=== PATIENT | male | born 1995 | race Asian ===

== ENCOUNTER 2019-01-30 15:27 | Inpatient (IN) | payer MEDICAID, OTHER ==
[~2019-01-30] VITALS: Ht 175.3 cm; Wt 60.4 kg
[~2019-01-30 15:27] MED LIST: DIVA-76 PO; RISP2 PO
[2019-01-30 16:48] LABS: BASOPHILS % (AUTO) 0.8 % (0.0-2.0); EOSINOPHILS % (AUTO) 3.2 % (1.0-6.0); HEMATOCRIT 33.1 % (41-53); LYMPHOCYTES % (AUTO) 12.6 % (22.0-44.0); MEAN CORPUSCULAR HGB CONC 33.1 G/dL (31.0-37.0); MEAN CORPUSCULAR VOLUME 66 fL (80-100); MONOCYTES # (AUTO) 0.5 K/uL (0.1-1.0); MONOCYTES % (AUTO) 6.2 % (2.0-9.0); NEUTROPHILS # (AUTO) 6.4 K/uL (1.8-7.7); NEUTROPHILS % (AUTO) 77.2 % (40.0-70.0); PLATELET COUNT (AUTO) 223 K/uL (150-450); RED BLOOD CELL COUNT(AUTO) 4.99 MIL/uL (4.50-5.90); RED CELL DISTRIBUTION WIDTH 16.4 % (11.5-14.5)
[2019-01-30 16:59] LABS: ANION GAP 6 mmol/L (8-16); CALCIUM, TOTAL 8.2 mg/dL (8.8-10.5); CARBON DIOXIDE 30 mmol/L (22-29); CHLORIDE 109 mmol/L (98-107); CREATININE 1.18 mg/dL (0.60-1.30); GLOMERULAR FILTR. RATE CALC > 60 mL/min (>60); GLUCOSE,RANDOM 55 mg/dL (70-110); POTASSIUM 4.2 mmol/L (3.5-5.1); SODIUM SERUM 145 mmol/L (136-145); UREA NITROGEN, BLOOD 23 mg/dL (7-18)
[2019-01-30 17:05] LABS: ALANINE AMINOTRANSFERASE 27 U/L (12-78); ALBUMIN 3.5 g/dL (3.4-5.0); BILIRUBIN,TOTAL 0.5 mg/dL (0.1-1.0)
[2019-01-30 17:43] LABS: ALKALINE PHOSPHATASE 76 U/L (46-116); ASPARTATE AMINOTRANSFERASE 42 U/L (15-37); TOTAL PROTEIN, SERUM 6.4 g/dL (6.4-8.2)
[2019-01-30 19:35] LABS: AMPHET/METH SCREEN,URINE POSITIVE (NEGATIVE); BARBITURATE SCREEN, URINE NEGATIVE (NEGATIVE); BENZODIAZEPINES SCREEN,URINE NEGATIVE (NEGATIVE); CANNABINOID SCREEN,URINE POSITIVE (NEGATIVE); COCAINE SCREEN,URINE NEGATIVE (NEGATIVE); METHADONE SCREEN, URINE NEGATIVE (NEGATIVE); OPIATE SCREEN,URINE NEGATIVE (NEGATIVE)
[2019-01-30 19:36] LABS: PHENCYCLIDINE SCREEN,URINE NEGATIVE (NEGATIVE)
[2019-01-30] MEDS ORDERED: BACITRACIN 0.9 GM PACKET OINTMENT TP ONE (20:15)
[2019-01-30] MEDS ORDERED: LIDOCAINE/PF 1% 5 ML VIAL INJ ONE (20:15)
[2019-01-30 20:33] LABS: VALPROIC ACID < 3 mcg/mL (50-100)
[2019-01-30] MEDS ORDERED: RisperiDONE 1 MG TABLET PO ONE (21:30)
[2019-01-30] MEDS ORDERED: DIVALPROEX SODIUM 500 MG ER TABLET PO ONE (21:30)
[2019-01-30 21:45] VITALS: BP 134/74
[2019-01-30] MEDS ORDERED: LORazepam 2 MG TABLET PO PRN (22:00)
[2019-01-30] MEDS ORDERED: HALOPERIDOL 5 MG TABLET PO PRN (22:00)
[2019-01-30] MEDS ORDERED: ZOLPIDEM TARTRATE 10 MG TABLET PO PRN (22:00)
[2019-01-30] MEDS ORDERED: DOCUSATE SODIUM 100 MG CAPSULE PO PRN (22:30)
[2019-01-30] MEDS ORDERED: ACETAMINOPHEN 325 MG TABLET PO PRN (22:30)
[2019-01-30] MEDS ORDERED: ALBUTEROL SULFATE HFA 90 MCG/PUFF 8 GM INHALER IH PRN (22:30)
[2019-01-30] MEDS ORDERED: NICOTINE 14 MG/24 HOUR PATCH TD PRN (22:30)
[2019-01-30] MEDS ORDERED: MAG HYDROX/AL HYDROX/SIMETH ES 30 ML SUSPENSION UDCUP PO PRN (22:30)
[2019-01-30] MEDS ORDERED: CloNIDine HCL 0.1 MG TABLET PO PRN (22:30)
[2019-01-30] MEDS ORDERED: IBUPROFEN 400 MG TABLET PO PRN (22:30)
[2019-01-30] MEDS ORDERED: ONDANSETRON HCL 4 MG TABLET PO PRN (22:30)
[2019-01-30] MEDS ORDERED: PETROLATUM,WHITE 28 GM JELLY TP PRN (22:30)
[2019-01-30] MEDS ORDERED: GuaiFENesin/D-METHORPHAN [SUGAR-FREE] 200-20MG/10 ML SYRUP UDCUP PO PRN (22:30)
[2019-01-30] MEDS ORDERED: LOPERAMIDE HCL 2 MG CAPSULE PO PRN (22:30)
[2019-01-30] MEDS ORDERED: MAGNESIUM HYDROXIDE SUSPENSION 30 ML UDCUP PO PRN (22:30)
[2019-01-31 08:54] VITALS: BP 142/70
[2019-01-31 09:51] LABS: BASOPHILS % (AUTO) 1.2 % (0.0-2.0); EOSINOPHILS % (AUTO) 5.5 % (1.0-6.0); HEMATOCRIT 30.8 % (41-53); HEMOGLOBIN 10.3 g/dL (13.5-17.5); LYMPHOCYTES % (AUTO) 23.7 % (22.0-44.0); MEAN CORPUSCULAR HEMOGLOBIN 22.2 pg (26.0-34.0); MEAN CORPUSCULAR HGB CONC 33.4 G/dL (31.0-37.0); MEAN CORPUSCULAR VOLUME 66 fL (80-100); MONOCYTES # (AUTO) 0.3 K/uL (0.1-1.0); MONOCYTES % (AUTO) 5.8 % (2.0-9.0); NEUTROPHILS # (AUTO) 2.8 K/uL (1.8-7.7); NEUTROPHILS % (AUTO) 63.8 % (40.0-70.0); PLATELET COUNT (AUTO) 213 K/uL (150-450); RED BLOOD CELL COUNT(AUTO) 4.64 MIL/uL (4.50-5.90); RED CELL DISTRIBUTION WIDTH 16.5 % (11.5-14.5)
[2019-01-31 10:06] LABS: HEMOGLOBIN A1C 4.7 % (4.5-6.2)
[2019-01-31 10:15] LABS: ALANINE AMINOTRANSFERASE 16 U/L (12-78); ALBUMIN 3.2 g/dL (3.4-5.0); ALKALINE PHOSPHATASE 52 U/L (46-116); ANION GAP 1 mmol/L (8-16); ASPARTATE AMINOTRANSFERASE 15 U/L (15-37); BILIRUBIN,TOTAL 0.7 mg/dL (0.1-1.0); CARBON DIOXIDE 31 mmol/L (22-29); CHLORIDE 107 mmol/L (98-107); CHOL/HDL RATIO 2.2 (4.2-7.3); CHOLESTEROL 81 mg/dL (131-200); CREATININE 0.81 mg/dL (0.60-1.30); GLOMERULAR FILTR. RATE CALC > 60 mL/min (>60); GLUCOSE,RANDOM 89 mg/dL (70-110); HDL CHOLESTEROL 37 mg/dL (40-60); LDL CHOL (CALC.) 38 mg/dL (0-130); POTASSIUM 4.1 mmol/L (3.5-5.1); SODIUM SERUM 139 mmol/L (136-145); THYROID STIMULATING HORMONE 1.09 uIU/mL (0.36-3.74); TOTAL PROTEIN, SERUM 5.8 g/dL (6.4-8.2); TRIGLYCERIDES 30 mg/dL (15-150); UREA NITROGEN, BLOOD 15 mg/dL (7-18)
[2019-01-31 16:00] VITALS: BP 99/53
[2019-01-31] MEDS: RisperiDONE 2 MG TABLET PO SCH (20:49)
[2019-01-31 21:59] LABS: APPEARANCE,URINE CLEAR (CLEAR); BILIRUBIN,URINE NEGATIVE (NEGATIVE); GLUCOSE, URINE (UA) NEGATIVE (NEGATIVE); KETONES,URINE TRACE mg/dL (NEGATIVE); LEUKOCYTE ESTERASE ,URINE NEGATIVE (NEGATIVE); NITRATE,URINE NEGATIVE (NEGATIVE); OCCULT BLOOD,URINE NEGATIVE (NEGATIVE); PH,URINE 6.5 (5.0-8.0); PROTEIN,URINE NEGATIVE (NEGATIVE)
[2019-01-31 22:07] LABS: BACTERIA,URINE None Seen /HPF (None Seen); RBC,URINE None Seen /HPF (0-2); SQUAMOUS EPITHELIAL CELL,UR Rare /LPF (None Seen); WBC,URINE None Seen /HPF (0-5)
[2019-02-01 10:05] VITALS: BP 103/67
[2019-02-01] MEDS: BuPROPion HCL XL 150 MG ER TABLET PO SCH (13:53)
[2019-02-01] MEDS: RisperiDONE 2 MG TABLET PO SCH (21:11)
[2019-02-01 21:23] VITALS: BP 100/55
[2019-02-02] MEDS: BuPROPion HCL XL 150 MG ER TABLET PO SCH (08:48)
[2019-02-02 09:42] VITALS: BP 100/60
[2019-02-02 16:00] VITALS: BP 106/61
[2019-02-02] MEDS: RisperiDONE 2 MG TABLET PO SCH (20:25)
[2019-02-03] MEDS: BuPROPion HCL XL 150 MG ER TABLET PO SCH (08:44)
[2019-02-03 09:12] VITALS: BP 110/61
[2019-02-03] MEDS ORDERED: BUPR-93 PO (12:19)
== END 2019-02-03 15:25 | disposition home or self-care (01) | DRG 740 ==
LOC: EMS 15:28 → 3EI 22:23
PROVIDERS: ADMIT Psychiatry & Neurology Psychiatry; ATTEND Psychiatry & Neurology Psychiatry
PROC: 0XQQ0ZZ Repair Right Middle Finger, Open Approach (ICD-10-PCS; principal; 2019-01-30)
DX: F25.9 Schizoaffective disorder, unspecified (principal); E44.0 Moderate protein-calorie malnutrition; D64.9 Anemia, unspecified; S61.219A Laceration without foreign body of unspecified finger without damage to nail, initial encounter; Z87.891 Personal history of nicotine dependence; X78.0XXA Intentional self-harm by sharp glass, initial encounter; Y93.89 Activity, other specified; Y92.89 Other specified places as the place of occurrence of the external cause; Y99.8 Other external cause status
CPT/HCPCS: 83036; 84443; G0480; J2001

== ENCOUNTER 2019-10-27 13:16 | Inpatient (IN) | payer MEDICAID ==
[~2019-10-27] VITALS: Ht 170.2 cm; Wt 68.9 kg
[~2019-10-27 13:16] MED LIST changes: +BUPR-93 PO; -DIVA-76 PO; -RISP2 PO; +RISP2TAB23 PO
[2019-10-27 21:55] VITALS: BP 119/72
[2019-10-28 05:31] VITALS: BP 115/64
[2019-10-28] MEDS ORDERED: MAG HYDROX/AL HYDROX/SIMETH ES 30 ML SUSPENSION UDCUP PO PRN (08:00)
[2019-10-28] MEDS ORDERED: IBUPROFEN 600 MG TABLET PO PRN (08:00)
[2019-10-28] MEDS ORDERED: ACETAMINOPHEN 325 MG TABLET PO PRN (08:00)
[2019-10-28] MEDS ORDERED: BACITRACIN 28.4 GM OINTMENT TP PRN (08:00)
[2019-10-28] MEDS ORDERED: PETROLATUM,WHITE 28 GM JELLY TP PRN (08:00)
[2019-10-28] MEDS ORDERED: ALBUTEROL SULFATE HFA 90 MCG/PUFF 8 GM INHALER IH PRN (08:00)
[2019-10-28] MEDS ORDERED: ONDANSETRON HCL 4 MG TABLET PO PRN (08:00)
[2019-10-28] MEDS ORDERED: OMEPRAZOLE 20 MG CAPSULE PO PRN (08:00)
[2019-10-28] MEDS ORDERED: BENZOCAINE/MENTHOL LOZENGE MM PRN (08:00)
[2019-10-28] MEDS ORDERED: CloNIDine HCL 0.1 MG TABLET PO PRN (08:00)
[2019-10-28] MEDS ORDERED: MAGNESIUM HYDROXIDE SUSPENSION 30 ML UDCUP PO PRN (08:00)
[2019-10-28] MEDS ORDERED: DOCUSATE SODIUM 100 MG CAPSULE PO PRN (08:00)
[2019-10-28] MEDS ORDERED: LOPERAMIDE HCL 2 MG CAPSULE PO PRN (08:00)
[2019-10-28 08:09] VITALS: BP 117/67
[2019-10-28 08:29] LABS: EOSINOPHILS % (AUTO) 5.4 % (1.0-6.0); HEMATOCRIT 36.8 % (41-53); HEMOGLOBIN 12.3 g/dL (13.5-17.5); LYMPHOCYTES # (AUTO) 1.2 K/uL (1.0-4.8); MEAN CORPUSCULAR HEMOGLOBIN 22.1 pg (26.0-34.0); MEAN CORPUSCULAR HGB CONC 33.5 G/dL (31.0-37.0); MEAN CORPUSCULAR VOLUME 66 fL (80-100); MONOCYTES # (AUTO) 0.5 K/uL (0.1-1.0); MONOCYTES % (AUTO) 5.4 % (2.0-9.0); NEUTROPHILS # (AUTO) 6.2 K/uL (1.8-7.7); NEUTROPHILS % (AUTO) 74.2 % (40.0-70.0); PLATELET COUNT (AUTO) 277 K/uL (150-450); RED BLOOD CELL COUNT(AUTO) 5.59 MIL/uL (4.50-5.90); RED CELL DISTRIBUTION WIDTH 16.3 % (11.5-14.5)
[2019-10-28 08:46] LABS: ALANINE AMINOTRANSFERASE 15 U/L (12-78); ALKALINE PHOSPHATASE 71 U/L (46-116); ANION GAP 4 mmol/L (8-16); ASPARTATE AMINOTRANSFERASE 16 U/L (15-37); BILIRUBIN,TOTAL 0.4 mg/dL (0.1-1.0); CALCIUM, TOTAL 8.9 mg/dL (8.8-10.5); CARBON DIOXIDE 31 mmol/L (22-29); CHLORIDE 103 mmol/L (98-107); CHOL/HDL RATIO 2.5 (4.2-7.3); CHOLESTEROL 119 mg/dL (131-200); CREATININE 1.05 mg/dL (0.60-1.30); FREE T4 (FREE THYROXINE) 0.99 ng/dL (0.76-1.46); GLOMERULAR FILTR. RATE CALC > 60 mL/min (>60); GLUCOSE,RANDOM 96 mg/dL (70-110); HDL CHOLESTEROL 47 mg/dL (40-60); LDL CHOL (CALC.) 51 mg/dL (0-130); POTASSIUM 4.5 mmol/L (3.5-5.1); SODIUM SERUM 138 mmol/L (136-145); THYROID STIMULATING HORMONE 0.93 uIU/mL (0.36-3.74); TOTAL PROTEIN, SERUM 7.6 g/dL (6.4-8.2); TRIGLYCERIDES 106 mg/dL (15-150); UREA NITROGEN, BLOOD 19 mg/dL (7-18)
[2019-10-28 09:11] LABS: HEMOGLOBIN A1C 4.6 % (3.8-5.6)
[2019-10-28] MEDS: MULTIVITAMINS WITH MINERALS, THERAPEUTIC TABLET PO SCH (09:22)
[2019-10-28 12:08] LABS: PLATELET MORPHOLOGY COMMENT GIANT PLTS PRESENT
[2019-10-28 16:10] VITALS: BP 149/77
[2019-10-28] MEDS: ZOLPIDEM TARTRATE 10 MG TABLET PO PRN (20:06)
[2019-10-29 02:36] VITALS: BP 118/67
[2019-10-29 08:18] VITALS: BP 116/69
[2019-10-29] MEDS: MULTIVITAMINS WITH MINERALS, THERAPEUTIC TABLET PO SCH (09:35)
[2019-10-29 16:50] VITALS: BP 101/69
[2019-10-29] MEDS: ZOLPIDEM TARTRATE 10 MG TABLET PO PRN (20:19)
[2019-10-30 05:21] VITALS: BP 117/72
[2019-10-30 08:20] VITALS: BP 115/64
[2019-10-30] MEDS: BuPROPion HCL XL 150 MG ER TABLET PO SCH (09:25)
[2019-10-30] MEDS: MULTIVITAMINS WITH MINERALS, THERAPEUTIC TABLET PO SCH (09:25)
[2019-10-30 16:30] VITALS: BP 123/66
[2019-10-30] MEDS: LORazepam 2 MG TABLET PO PRN (16:39)
[2019-10-30] MEDS: HALOPERIDOL 5 MG TABLET PO PRN (16:39)
[2019-10-30] MEDS: ZOLPIDEM TARTRATE 10 MG TABLET PO PRN (20:30)
[2019-10-30] MEDS: RisperiDONE 2 MG TABLET PO SCH (20:30)
[2019-10-31 05:11] VITALS: BP 108/67
[2019-10-31 08:23] VITALS: BP 114/67
[2019-10-31] MEDS: BuPROPion HCL XL 150 MG ER TABLET PO SCH (08:34)
[2019-10-31] MEDS: MUPIROCIN CALCIUM 2% 22 GM OINTMENT NASAL SCH ×2 (08:34→16:09)
[2019-10-31] MEDS: MULTIVITAMINS WITH MINERALS, THERAPEUTIC TABLET PO SCH (08:34)
[2019-10-31] MEDS: HALOPERIDOL 5 MG TABLET PO PRN (16:09)
[2019-10-31] MEDS: LORazepam 2 MG TABLET PO PRN (16:09)
[2019-10-31 16:17] VITALS: BP 118/73
[2019-10-31] MEDS: RisperiDONE 2 MG TABLET PO SCH (21:07)
[2019-11-01 04:08] VITALS: BP 123/67
[2019-11-01 08:22] VITALS: BP 123/77
[2019-11-01] MEDS: MULTIVITAMINS WITH MINERALS, THERAPEUTIC TABLET PO SCH (08:53)
[2019-11-01] MEDS: BuPROPion HCL XL 150 MG ER TABLET PO SCH (08:54)
[2019-11-01] MEDS: MUPIROCIN CALCIUM 2% 22 GM OINTMENT NASAL SCH ×2 (08:54→17:29)
[2019-11-01] MEDS: LORazepam 2 MG TABLET PO PRN (15:36)
[2019-11-01 16:26] VITALS: BP 112/70
[2019-11-01] MEDS: RisperiDONE 2 MG TABLET PO SCH (20:03)
[2019-11-01] MEDS: ZOLPIDEM TARTRATE 10 MG TABLET PO PRN (20:03)
[2019-11-01 22:34] VITALS: BP 112/68
[2019-11-02] MEDS: LORazepam 2 MG TABLET PO PRN ×2 (06:37→12:37)
[2019-11-02 08:12] VITALS: BP 102/66
[2019-11-02] MEDS: BuPROPion HCL XL 150 MG ER TABLET PO SCH (08:13)
[2019-11-02] MEDS: MUPIROCIN CALCIUM 2% 22 GM OINTMENT NASAL SCH ×2 (08:13→16:50)
[2019-11-02] MEDS: MULTIVITAMINS WITH MINERALS, THERAPEUTIC TABLET PO SCH (08:13)
[2019-11-02] MEDS: HALOPERIDOL 5 MG TABLET PO PRN (15:46)
[2019-11-02 17:01] VITALS: BP 120/77
[2019-11-02] MEDS: RisperiDONE 2 MG TABLET PO SCH (20:36)
[2019-11-03] MEDS: MULTIVITAMINS WITH MINERALS, THERAPEUTIC TABLET PO SCH (08:13)
[2019-11-03] MEDS: BuPROPion HCL XL 150 MG ER TABLET PO SCH (08:13)
[2019-11-03] MEDS: MUPIROCIN CALCIUM 2% 22 GM OINTMENT NASAL SCH ×2 (08:13→17:35)
[2019-11-03] MEDS: HALOPERIDOL 5 MG TABLET PO PRN (08:15)
[2019-11-03] MEDS: LORazepam 2 MG TABLET PO PRN (08:15)
[2019-11-03 08:30] VITALS: BP 118/72
[2019-11-03 16:37] VITALS: BP 114/71
[2019-11-03] MEDS: RisperiDONE 2 MG TABLET PO SCH (20:02)
[2019-11-04] MEDS ORDERED: MUPI1OIN5 TP (07:52)
[2019-11-04] MEDS: HALOPERIDOL 5 MG TABLET PO PRN (08:09)
[2019-11-04] MEDS: LORazepam 2 MG TABLET PO PRN ×2 (08:09→15:14)
[2019-11-04] MEDS: MUPIROCIN CALCIUM 2% 22 GM OINTMENT NASAL SCH ×2 (08:40→16:57)
[2019-11-04] MEDS: MULTIVITAMINS WITH MINERALS, THERAPEUTIC TABLET PO SCH (08:41)
[2019-11-04] MEDS: BuPROPion HCL XL 150 MG ER TABLET PO SCH (08:41)
[2019-11-04 11:14] VITALS: BP 110/70
[2019-11-04 16:00] VITALS: BP 100/58
[2019-11-04] MEDS: RisperiDONE 2 MG TABLET PO SCH (20:04)
== END 2019-11-04 20:15 | disposition home or self-care (01) | DRG 885 ==
LOC: B3A 21:35 → 3EC 11-01 22:00
PROVIDERS: ADMIT Psychiatry & Neurology Psychiatry; ATTEND Psychiatry & Neurology Psychiatry
DX: F25.9 Schizoaffective disorder, unspecified (principal); R45.851 Suicidal ideations; E44.1 Mild protein-calorie malnutrition; F12.90 Cannabis use, unspecified, uncomplicated; K59.00 Constipation, unspecified; D50.9 Iron deficiency anemia, unspecified; F15.10 Other stimulant abuse, uncomplicated; F41.9 Anxiety disorder, unspecified; G47.00 Insomnia, unspecified; Z68.23 Body mass index [BMI] 23.0-23.9, adult
CPT/HCPCS: 83036; 84436; 84439; 84443; 86592; 87081

== ENCOUNTER 2025-01-27 05:53 | Emergency (ER) | payer MEDICAID, OTHER ==
[~2025-01-27] VITALS: Ht 175.3 cm; Wt 63.6 kg
[~2025-01-27 05:53] MED LIST changes: +BUPR-50 PO; -BUPR-93 PO; -RISP2TAB23 PO; +RISP2TAB45 PO
[2025-01-27 06:36] LABS: PLATELET COUNT (AUTO) 343 K/uL (150-450); RED BLOOD CELL COUNT(AUTO) 5.08 MIL/uL (4.50-5.90); RED CELL DISTRIBUTION WIDTH 17.0 % (11.5-14.5); WHITE BLOOD COUNT (AUTO) 8.3 K/uL (4.5-11.0)
[2025-01-27] MEDS: SODIUM CHLORIDE 0.9% 1,000 ML IV ONE (06:36)
[2025-01-27] MEDS: LORazepam 2 MG/ML VIAL IVP ONE (06:36)
[2025-01-27 06:48] LABS: CALCIUM, TOTAL 8.4 mg/dL (8.8-10.5); CREATININE 1.55 mg/dL (0.60-1.30); GLOMERULAR FILTR. RATE CALC 53.0 mL/min (>60); GLUCOSE,RANDOM 76.0 mg/dL (70-110); SODIUM SERUM 141.0 mmol/L (136-145); UREA NITROGEN, BLOOD 13.0 mg/dL (7-18)
[2025-01-27 07:08] LABS: COVID AG,FIA SOURCE NASAL SWAB
[2025-01-27 07:25] LABS: LACTIC ACID 0.9 mmol/L (0.4-2.0)
[2025-01-27 07:43] LABS: SARS-COV2 (COVID) ANTIGEN,FIA Negative (Negative)
[2025-01-27 10:40] LABS: APPEARANCE,URINE CLEAR (CLEAR); GLUCOSE, URINE (UA) NEGATIVE (NEGATIVE); LEUKOCYTE ESTERASE ,URINE NEGATIVE (NEGATIVE); NITRATE,URINE NEGATIVE (NEGATIVE); OCCULT BLOOD,URINE NEGATIVE (NEGATIVE); PH,URINE DRUG SCREEN 6.0 (5.0-8.0); SPECIFIC GRAVITIY, URINE 1.016 (1.003-1.030)
[2025-01-27 10:46] LABS: ALCOHOL, URINE DRUG SCREEN NEGATIVE (NEGATIVE); AMPHET/METH SCREEN,URINE POSITIVE (NEGATIVE); BARBITURATE SCREEN, URINE NEGATIVE (NEGATIVE); CANNABINOID SCREEN,URINE NEGATIVE (NEGATIVE); COCAINE SCREEN,URINE NEGATIVE (NEGATIVE); METHADONE SCREEN, URINE NEGATIVE (NEGATIVE)
[2025-01-27 11:32] VITALS: BP 116/59; PULSE 65; RESP 19; TEMP 98.2; O2SAT 99
[2025-01-27] MEDS ORDERED: RISP2TAB45 PO (11:43)
== END 2025-01-27 11:49 | disposition home or self-care (01) ==
LOC: EMS 05:55
DX: F25.9 Schizoaffective disorder, unspecified (principal); F15.10 Other stimulant abuse, uncomplicated; E86.0 Dehydration; F17.210 Nicotine dependence, cigarettes, uncomplicated; Z79.899 Other long term (current) drug therapy; Z20.822 Contact with and (suspected) exposure to COVID-19
CPT/HCPCS: 99284; 96374; 96361; 87426; 80048; 81003; 82550; 83605; 85025; 36415; 80307; G0480; J2060